=== PATIENT | male | born 1965 | race Caucasian/White ===

== ENCOUNTER 2016-11-27 16:21 | Emergency (ER) | payer OTHER ==
[~2016-11-27] VITALS: Ht 167.6 cm; Wt 98.0 kg
[~2016-11-27 16:21] MED LIST: ASPI-605 PO
[2016-11-27] MEDS ORDERED: LOSA100T15 PO (16:44)
[2016-11-27] MEDS ORDERED: HYDR12.5 PO (16:44)
[2016-11-27] MEDS ORDERED: CLON1TAB PO (16:44)
[2016-11-27] MEDS ORDERED: ESCI10TA PO (16:44)
[2016-11-27 17:19] VITALS: BP 159/93
== END 2016-11-27 17:20 | disposition home or self-care (01) ==
LOC: ER 16:23
DX: I10 Essential (primary) hypertension (principal); F41.9 Anxiety disorder, unspecified; Z79.82 Long term (current) use of aspirin
CPT/HCPCS: A4606; Z7502; Z7610